=== PATIENT | female | born 1960 | race African-American/Black ===

== ENCOUNTER 2017-08-16 08:33 | Emergency (ER) | payer SELFPAY ==
[~2017-08-16 08:33] MED LIST: DOXY100T PO; ENAL20TA81 PO; GLUCTAB PO; MECL25 PO; METR-1 PO
[2017-08-16 08:35] VITALS: BP 172/88; PULSE 93; RESP 16; TEMP 98.7; O2SAT 100
[2017-08-16] MEDS: MORPHINE SULFATE 4 MG/ML INJ IV PUSH ONE ×2 (08:45→09:35)
[2017-08-16] MEDS ORDERED: ONDANSETRON HCL 4 MG/2 ML VIAL IVP ONE (08:45)
[2017-08-16] MEDS ORDERED: SODIUM CHLORIDE 0.9% FLUSH 10 ML FLUSH IV FLUSH PRN (08:45)
[2017-08-16] MEDS ORDERED: METF500T PO ×2 (08:49→11:22)
[2017-08-16] MEDS ORDERED: ASPI-183 PO (08:49)
[2017-08-16] MEDS ORDERED: ENAL20TA PO (08:49)
[2017-08-16 09:22] LABS: AUTOMATED NEUTROPHIL # 3.1 TH/MM3 (1.8-7.7); BASOPHIL # 0.1 TH/MM3 (0-0.2); BASOPHIL % 0.8 % (0.0-2.0); EOSINOPHIL # 0.1 TH/MM3 (0-0.4); EOSINOPHIL % 1.9 % (0.0-4.0); HEMATOCRIT 44.6 % (35.0-46.0); HEMO FLAGS DIFF FINAL; LYMPH % 45.2 % (9.0-44.0); LYMPHOCYTE # 3.2 TH/MM3 (1.0-4.8); MEAN CELL VOLUME 88.1 FL (80.0-100.0); MEAN CORPUSCULAR HEMOGLOBIN 29.7 PG (27.0-34.0); MEAN CORPUSCULAR HGB CONC 33.7 % (32.0-36.0); MONO % 7.9 % (0.0-8.0); NEUT % 44.2 % (16.0-70.0); PLATELET COUNT 235 TH/MM3 (150-450); RED BLOOD COUNT 5.06 MIL/MM3 (4.00-5.30); RED CELL DISTRIBUTION WIDTH 12.7 % (11.6-17.2)
[2017-08-16 09:28] VITALS: O2SAT 97
[2017-08-16 09:29] LABS: APTT (PATIENT) 23.2 SEC (24.3-30.1); PROTHROMBIN TIME - PATIENT 9.8 SEC (9.8-11.6)
[2017-08-16 09:38] LABS: BICARBONATE 27.3 MEQ/L (21.0-32.0)
--- NOTE | 2017-08-16 09:39 | PD ---
HPI Chief Complaint: GI Complaint Time Seen by Provider: 08:40 Travel History International Travel<30 days: No Contact w/Intl Traveler<30days: No Traveled to known affect area: No History of Present Illness HPI Patient is a 57-year-old female who comes in complaining of nausea and abdominal bloating. She says she has pain to her upper abdomen. She says that the bloating is been going on for about a week with some nausea. She says for the past couple days she has been experiencing pain, and this made her come in. She does report that she has been out of her diabetes medications for a long time due to insurance issues. She says she has felt warm, but has not taken her temperature. She denies any vomiting. She denies any urinary symptoms. PFSH Past Medical History Arthritis: Yes Atrial Fibrillation: Yes Heart Rhythm Problems: Yes ("IRREGULAR HEARTBEAT") Cardiovascular Problems: Yes (HTN) High Cholesterol: Yes Diabetes: Yes Patient Takes Glucophage: Yes Diminished Hearing: No Gastrointestinal Disorders: Yes (DX W/ HIATAL HERNIA IN PAST) Gout: Yes Hiatal Hernia: Yes Hypertension: Yes Musculoskeletal: Yes (CERVIAL NECK PROBLEMS) Immunizations Current: Yes Migraines: Yes Seizures: Yes ( A BABY) Menopausal: Yes : 3 Para: 3 Tubal Ligation: Yes Past Surgical History Section: Yes (X 3) Gynecologic Surgery: Yes (C/SECTION X 3) Social History Alcohol Use: Yes (OCCASIONALLY) Tobacco Use: No Substance Use: No Allergies-Medications (Allergen,Severity, Reaction): Coded Allergies: penicillin G (Unverified Allergy, Severe, Rash, 08/16/17) Reported Meds & Prescriptions Reported Meds & Active Scripts Active Cipro (Ciprofloxacin HCl) 500 Mg Tab 500 Mg PO BID 5 Days Diflucan (Fluconazole) 150 Mg Tab 150 Mg PO ONCE Metformin (Metformin HCl) 500 Mg Tab 500 Mg PO BIDPC Reported Metformin (Metformin HCl) 500 Mg Tab 500 Mg PO BIDPC Enalapril (Enalapril Maleate) 20 Mg Tab 20 Mg PO DAILY Aspirin 325 Mg Tab 325 Mg PO DAILY Review of Systems Except as stated in HPI: all other systems reviewed are Neg General / Constitutional: Positive: Fever, No: Chills HENT: No: Headaches, Lightheadedness Cardiovascular: No: Chest Pain or Discomfort Respiratory: No: Cough, Shortness of Breath Gastrointestinal: Positive: Nausea, Diarrhea, Abdominal Pain, No: Vomiting Genitourinary: No: Dysuria Musculoskeletal: No: Myalgias, Edema Skin: No Rash, No Change in Pigmentation Neurologic: No: Weakness, Dizziness Physical Exam Narrative GENERAL: Awake and alert, in no acute distress. SKIN: Focused skin assessment warm/dry. HEAD: Atraumatic. Normocephalic. EYES: Pupils equal and round. No scleral icterus. ENT: Mucous membranes pink and moist. NECK: Trachea midline. No JVD. CARDIOVASCULAR: Regular rate and rhythm. No murmur appreciated. RESPIRATORY: No accessory muscle use. Clear to auscultation. Breath sounds equal bilaterally. GASTROINTESTINAL: Abdomen is enlarged, but soft. Tender to palpation of the epigastric area as well as the left side. No rebound or guarding. MUSCULOSKELETAL: No obvious deformities. No clubbing. No cyanosis. No edema. NEUROLOGICAL: Awake and alert. No obvious cranial nerve deficits. Motor grossly within normal limits. Normal speech. PSYCHIATRIC: Appropriate mood and affect; insight and judgment normal. Data Data Last Documented VS Vital Signs Date Time Temp Pulse Resp B/P (MAP) Pulse Ox O2 Delivery O2 Flow Rate FiO2 08/16/17 11:48 08/16/17 09:28 97 Room Air 08/16/17 08:35 98.7 93 16 Orders Orders Basic Metabolic Panel (Bmp) (08/16/17 08:45) Complete Blood Count With Diff (08/16/17 08:45) Lipase (08/16/17 08:45) Prothrombin Time / Inr (Pt) (08/16/17 08:45) Act Partial Throm Time (Ptt) (08/16/17 08:45) Urinalysis - C+S If Indicated (08/16/17 08:45) Ct Abd/Pel W Iv Contrast(Rout) (08/16/17 08:45) Iv Access Insert/Monitor (08/16/17 08:45) Ecg Monitoring (08/16/17 08:45) Oximetry (08/16/17 08:45) Morphine Inj (Morphine Inj) (08/16/17 08:45) Ondansetron Inj (Zofran Inj) (08/16/17 08:45) Sodium Chloride 0.9% Flush (Ns Flush) (08/16/17 08:45) Electrocardiogram (08/16/17 08:45) Hepatic Functional Panel (08/16/17 08:46) Beta Hydroxybutyrate (Acetone) (08/16/17 08:46) Sodium Chlor 0.9% 1000 Ml Inj (Ns 1000 M (08/16/17 09:45) Urine Culture (08/16/17 09:20) Iohexol 350 Inj (Omnipaque 350 Inj) (08/16/17 10:27) Al-Mag Hy-Si 40-40-4 Mg/Ml Liq (Mag-Al P (08/16/17 11:00) Lidocaine 2% Viscous (Xylocaine 2% Visco (08/16/17 11:00) Ed Discharge Order (08/16/17 11:23) Labs Laboratory Tests Test 08/16/17 08:45 08/16/17 08:55 08/16/17 09:20 Prothrombin Time 9.8 SEC Prothromb Time International Ratio 1.0 RATIO Activated Partial Thromboplast Time 23.2 SEC White Blood Count 7.0 TH/MM3 Red Blood Count 5.06 MIL/MM3 Hemoglobin 15.0 GM/DL Hematocrit 44.6 % Mean Corpuscular Volume 88.1 FL Mean Corpuscular Hemoglobin 29.7 PG Mean Corpuscular Hemoglobin Concent 33.7 % Red Cell Distribution Width 12.7 % Platelet Count 235 TH/MM3 Mean Platelet Volume 8.2 FL Neutrophils (%) (Auto) 44.2 % Lymphocytes (%) (Auto) 45.2 % Monocytes (%) (Auto) 7.9 % Eosinophils (%) (Auto) 1.9 % Basophils (%) (Auto) 0.8 % Neutrophils # (Auto) 3.1 TH/MM3 Lymphocytes # (Auto) 3.2 TH/MM3 Monocytes # (Auto) 0.5 TH/MM3 Eosinophils # (Auto) 0.1 TH/MM3 Basophils # (Auto) 0.1 TH/MM3 CBC Comment DIFF FINAL Differential Comment Blood Urea Nitrogen 12 MG/DL Creatinine 0.64 MG/DL Random Glucose 325 MG/DL Calcium Level 8.7 MG/DL Sodium Level 133 MEQ/L Potassium Level 4.0 MEQ/L Chloride Level 100 MEQ/L Carbon Dioxide Level 27.3 MEQ/L Anion Gap 6 MEQ/L Estimat Glomerular Filtration Rate 115 ML/MIN Total Bilirubin 0.4 MG/DL Direct Bilirubin 0.1 MG/DL Indirect Bilirubin 0.3 MG/DL Aspartate Amino Transf (AST/SGOT) 25 U/L Alanine Aminotransferase (ALT/SGPT) 39 U/L Alkaline Phosphatase 134 U/L Total Protein 8.2 GM/DL Albumin 3.7 GM/DL Lipase 288 U/L B-Hydroxybutyrate 0.69 MMOL/L Urine Color LIGHT-YELLOW Urine Turbidity CLEAR Urine pH 6.5 Urine Specific [place] 1.038 Urine Protein TRACE mg/dL Urine Glucose (UA) 1000 mg/dL Urine Ketones 40 mg/dL Urine Occult Blood NEG Urine Nitrite NEG Urine Bilirubin NEG Urine Urobilinogen LESS THAN 2.0 MG/DL Urine Leukocyte Esterase NEG Urine RBC LESS THAN 1 /hpf Urine WBC LESS THAN 1 /hpf Urine Squamous Epithelial Cells 4 /hpf Urine Bacteria MOD /hpf Microscopic Urinalysis Comment CULTURE INDICATED MDM Medical Decision Making Medical Screen Exam Complete: Yes Emergency Medical Condition: Yes Medical Record Reviewed: Yes Interpretation(s) ECG shows normal sinus rhythm at 82, no ST elevation or depression, normal intervals. Differential Diagnosis Pancreatitis versus gastritis versus hyperglycemia versus HHS versus DKA Narrative Course Patient is a 57-year-old female who comes in complaining of abdominal bloating and diarrhea. Exam shows mild tenderness on the left side as well as epigastric area.. IV established, labs sent. Labs show a glucose of 325, anion gap is within normal limits. Patient given IV fluids, morphine, GI cocktail. Urinalysis is positive for bacteria. CT abdomen and pelvis performed shows no acute abnormalities. Last 24 hours Impressions Abdomen/Pelvis CT 08/16/17 0845 Signed Impressions: Service Date/Time: August 10:14 - CONCLUSION: 1. No acute finding is identified to explain the clinical symptoms. 2. There are multiple bilateral low-density renal lesions. Many of were present previously and have slightly increased in size. This lack of significant change favors a benign process. However, on an outpatient elective basis, suggest further characterization with a renal ultrasound or renal protocol MRI with and without intravenous contrast to ensure that there are no solid lesions present. Jordan Ridley MD Patient advised of her results. Advised follow-up with the [facility]. Given a prescription for her metformin as well as Cipro, which are free of [employer]. Advised to return to the ED as needed for any worsening symptoms. Diagnosis Primary Impression: Urinary tract infection Qualified Codes: N30.00 - Acute cystitis without hematuria Additional Impression: Diarrhea Qualified Codes: R19.7 - Diarrhea, unspecified Referrals: [facility] call for appointment Patient Instructions: Acute Diarrhea (ED), General Instructions, Urinary Tract Infection in Women (ED) Additional Instructions: Drink plenty of fluids. Take your metformin as prescribed. Take all of your antibiotic. Follow-up in the [facility]. You're CAT scan today showed a lesion on her kidney that needs to be followed up with an MRI. Return to the ED as needed for any worsening symptoms. Scripts Ciprofloxacin (Cipro) 500 Mg Tab 500 MG PO BID for Infection for 5 Days, #10 TAB 0 Refills Prov: Gina Arriola MD 08/16/17 Fluconazole (Diflucan) 150 Mg Tab 150 MG PO ONCE for Infection, #1 TAB 0 Refills Prov: Gina Arriola MD 08/16/17 Metformin (Metformin) 500 Mg Tab 500 MG PO BIDPC for Blood Sugar Management, #60 TAB 0 Refills Prov: Gina Arriola MD 08/16/17 Disposition: 01 DISCHARGE HOME Condition: Stable Gina Arriola MD Aug 16, 2017 09:39
[2017-08-16 09:41] LABS: BETA-HYDROXYBUTYRATE 0.69 MMOL/L (0.00-0.39); INDIRECT BILIRUBIN 0.3 MG/DL (0.0-0.8); TOTAL BILIRUBIN ADULT 0.4 MG/DL (0.2-1.0)
[2017-08-16] MEDS ORDERED: SODIUM CHLOR 0.9% 1000 ML INJ 1,000 ML IV ONE (09:45)
[2017-08-16 09:54] LABS: BACTERIA, URINE MOD /hpf; BLOOD, URINE NEG (NEG); COMMENT (UR) CULTURE INDICATED; CULTURE IF INDICATED CULTURE INDICATED; GLUCOSE,URINE 1000 mg/dL (NEG); KETONE, URINE 40 mg/dL (NEG); NITRITE,URINE NEG (NEG); PH, URINE 6.5 (5.0-8.5); SQUAMOUS EPITHELIAL CELL URINE 4 /hpf (0-5); URINE COLOR LIGHT-YELLOW (YELLW/STRAW)
[2017-08-16] MEDS ORDERED: IOHEXOL 350 MG/ML 10 ML VIAL (for RAD DIAG) IVCONTRAST ONE (10:27)
--- NOTE | 2017-08-16 10:42 | RADRPT ---
EXAM DATE/TIME: 08/16/2017 10:14 [facility] COMPARISON: CT ABDOMEN & PELVIS W CONTRAST, September 30, 2010, 0:27. INDICATIONS : Nausea, vomiting and diarrhea for two days. IV CONTRAST: 96 cc Omnipaque 350 (iohexol) IV ORAL CONTRAST: No oral contrast ingested. RADIATION DOSE: 5.68 CTDIvol (mGy) MEDICAL HISTORY : Diabetes mellitus type 2. Hypertension. Hernia, hiatal. SURGICAL HISTORY : Tubal ligation. ENCOUNTER: Initial ACUITY: 2 days PAIN SCALE: 5/10 LOCATION: abdomen TECHNIQUE: Volumetric scanning of the abdomen and pelvis was performed. Using automated exposure control and ad justment of the mA and/or kV according to patient size, radiation dose was kept as low as reasonably achievable to obtain optimal diagnostic quality images. DICOM format image data is available electro nically for review and comparison. FINDINGS: LOWER LUNGS: The visualized lower lungs are clear. LIVER: Homogeneous density without lesion. The liver measures 18.2 cm. There is no dilation of the biliary tree. No calcified gallstones. SPLEEN: Normal size without lesion. PANCREAS: Within normal limits. KIDNEYS: Normal in size and shape. There is no stone or hydronephrosis. There is a 10 by 8mm low-density lesi on at the lower pole of the right kidney and there are are for low-density lesions in the left kidney measuring up to 15 mm. Most of these do not meet criteria for simple cysts. Most of these were prese nt previously and has slightly increased in size. ADRENAL GLANDS: Within normal limits. VASCULAR: There is no aortic aneurysm. BOWEL/MESENTERY: The stomach, small bowel, and colon demonstrate no acute abnormality. There is no free intraperitone al air or fluid. The appendix is normal. ABDOMINAL WALL: Within normal limits. RETROPERITONEUM: There is no lymphadenopathy. BLADDER: No wall thickening or mass. REPRODUCTIVE: Within normal limits. INGUINAL: There is no lymphadenopathy or hernia. MUSCULOSKELETAL: There are bone islands in the right posterior iliac bone and left iliac bone that have slightly incre ased in size. Mild degenerative changes are present throughout the lumbar spine. CONCLUSION: 1. No acute finding is identified to explain the clinical symptoms. 2. There are multiple bilateral low-density renal lesions. Many of were present previously and have s lightly increased in size. This lack of significant change favors a benign process. However, on an ou tpatient elective basis, suggest further characterization with a renal ultrasound or renal protocol M RI with and without intravenous contrast to ensure that there are no solid lesions present. Jordan Ridley MD on August 16, 2017 at 10:32 Board Certified Radiologist. This report was verified electronically.
[2017-08-16] MEDS ORDERED: ALUMINUM/MAGNESIUM/SIMETH 30 ML CUP PO ONE (11:00)
[2017-08-16] MEDS ORDERED: LIDOCAINE VISCOUS 2% SOLN 15 ML UDC PO ONE (11:00)
[2017-08-16] MEDS ORDERED: DIFL150T PO (11:22)
[2017-08-16] MEDS ORDERED: CIPR-9 PO (11:22)
--- NOTE | 2017-08-16 17:52 | EKG ---
Date Performed: 08/16/2017 Time Performed: 09:25:43 PTAGE: 57 years EKG: Sinus rhythm POSSIBLE RIGHT VENTRICULAR CONDUCTION DELAY LEFT ANTERIOR FASCICULAR BLOCK Poor R wave progression. ABNORMAL ECG PREVIOUS TRACING : 11/11/2015 14.52 DOCTOR: Dimas Limon Interpretating Date/Time 08/16/2017 17:52:15
== END 2017-08-16 12:46 | disposition home or self-care (01) ==
LOC: NEPE 08:33
DX: N39.0 Urinary tract infection, site not specified (principal); R19.7 Diarrhea, unspecified; B96.89 Other specified bacterial agents as the cause of diseases classified elsewhere; I10 Essential (primary) hypertension; E78.00 Pure hypercholesterolemia, unspecified; I48.91 Unspecified atrial fibrillation; E11.9 Type 2 diabetes mellitus without complications; R94.31 Abnormal electrocardiogram [ECG] [EKG]; Z88.0 Allergy status to penicillin; Z79.84 Long term (current) use of oral hypoglycemic drugs; Z79.82 Long term (current) use of aspirin
CPT/HCPCS: 74177; 80048; 80076; 81001; 82010; 83690; 85025; 85610; 85730; 87086; 93005; 96361; 96374; 99285; J2405; J7030; Q9967; J2270